=== PATIENT | female | born 1990 | race Caucasian/White ===

== ENCOUNTER 2016-09-04 21:12 | Inpatient (IN) ==
[2016-09-04] MEDS ORDERED: INFLUENZA VIRUS VACCINE 0.5 ML SYRINGE IM ONE (21:34)
[2016-09-05] MEDS ORDERED: BUTORPHANOL 2 MG/ML VIAL IV PRN (00:03)
[2016-09-05] MEDS ORDERED: ONDANSETRON 4 MG/2 ML VIAL IV PRN ×2 (00:03→12:17)
[2016-09-05] MEDS ORDERED: ACETAMINOPHEN 325 MG TABLET PO PRN ×2 (00:03→12:17)
[2016-09-05] MEDS ORDERED: TERBUTALINE 1 MG/1 ML VIAL SUBCUT PRN (00:03)
[2016-09-05 01:48] LABS: Basophils % 0.2 % (0.0-0.8); Eosinophils % 0.3 % (0.00-10.9); Hematocrit 29.7 VOL% (35.7-47.0); Hemoglobin 9.5 GM/DL (12.0-16.0); Immature Granulocytes % 1.2 %; Immature Granulocytes Absolute 0.13 #; Lymphocytes # 1.9 10*3/uL (1.4-4.0); Lymphocytes % 18.2 % (21.3-54.2); Mean Corpuscular Hemoglobin 29 PG (27-34); Mean Corpuscular Volume 90.3 FL (87-102); Mean Platelet Volume 11.2 FL (9.6-12.0); Monocytes # 0.8 10*3/uL (0.11-0.8); Monocytes % 7.2 % (1.7-12.7); NRBC # 0.02 10*3/uL; Neutrophils # 7.6 10*3/uL (1.4-7.4); Neutrophils % 72.9 % (38.7-73.9); Platelet Count 166 10*3/uL (130-400); Red Blood Count 3.29 10*6/uL (3.8-5.5); Red Cell Distribution Width 13.1 % (9.3-17.3); White Blood Count 10.5 10*3/uL (4.5-13.71)
--- NOTE | 2016-09-05 07:00 | OB/GYN History & Physical ---
History of Present Illness Chief complaint: at 39+ weeks low ADAMARIS elective induction History of present illness: Ms. Shea is a 26 year old female 1 para 0 at 39+3 weeks assessment gestational age with ultrasound estimated weight of 8 lbs. 1 oz. vertex presentation with low ADAMARIS of 6 who requests elective induction. She has adequate clinical pelvimetry. Risks benefits and alternatives are explained to patient in detail and informed consent was obtained Home Medications Medication Instructions Recorded Confirmed Type No Known Home Medications [No 03/16/15 09/04/16 History Known Home Medications] Allergies Allergy/AdvReac Type Severity Reaction Status Date / Time No Known Allergies Allergy Unverified 03/16/15 21:36 12 point system: reviewed and no additional remarkable complaints except as stated Medical,Surgical,& Family Hx - Medical History Reproductive: No history of: Ectopic , Complication - Surgical History Reproductive Surgeries: Patient denies;: Section - Family History Family History: Reports;: Family Hypertension (mom, mgf) Denies;: Family Anesthesia Reaction, Family Cancer, Family Diabetes, Family Heart Disease, Family Hematology, Family Psychiatric Problems, Family Stroke, Additional Family History - Social History Smoking Status: Unknown if ever smoked Frequency of Alcohol Use: None Type of Drug Use: None 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: Vital Signs Temp Pulse Resp BP 09/05/16 04:00 97.5 F L 71 18 119/78 09/05/16 00:00 79 20 133/88 09/04/16 21:18 97.7 F General appearance: normal weight, no acute distress - Head Head exam: Present: normal inspection, normocephalic, atraumatic - Eye Eye exam: Present: EOMI Pupils: Present: UMAIR - Neck Neck exam: Present: normal inspection - Respiratory Respiratory exam: Present: clear to auscultation bilaterally - Breast Breasts: as per HPI Menstruation: as per HPI - Cardiovascular Cardiovascular exam: Present: regular rate and rhythm - GI/Abdominal GI/Abdominal exam: Present: normal bowel sounds - Extremities Exam Extremities exam: Present: normal inspection, normal capillary refill - Back Exam Back exam: Present: normal inspection - Neurological Exam Neurological exam: Present: alert, oriented X3 - Psychiatric Psychiatric exam: Present: normal affect, normal mood - Skin Skin exam: Present: normal color, warm Assessment and Plan (1) with 39 completed weeks gestation Status: Acute Current Visit: Yes (2) ADAMARIS (amniotic fluid index) borderline low Status: Acute Current Visit: Yes (3) Elective induction of labor planned Status: Acute Current Visit: Yes Results - Labs CBC & BMP: 09/05/16 00:21
[2016-09-05] MEDS ORDERED: BUTORPHANOL 1 MG/ML VIAL ONE (07:14)
[2016-09-05] MEDS ORDERED: OXYTOCIN/LR 20 UNIT/1,000 ML BAG IV ONE ×2 (07:14→12:17)
[2016-09-05] MEDS ORDERED: BUTORPHANOL 1 MG/ML VIAL IV PRN (07:19)
[2016-09-05] MEDS ORDERED: FAMOTIDINE 20 MG/2 ML VIAL IV ONE (07:54)
[2016-09-05] MEDS ORDERED: fentaNYL 2 MCG/ROPIV 0.2% EPID 150 ML EPIDURAL SCH (07:54)
[2016-09-05] MEDS ORDERED: CITRIC ACID/SODIUM CITRATE 30 ML UDCUP PO ONE (07:54)
[2016-09-05] MEDS ORDERED: ePHEDrine 50 MG/ML AMP IV PRN (07:54)
[2016-09-05] MEDS ORDERED: diphenhydrAMINE 50 MG/1 ML VIAL IV PRN (07:54)
[2016-09-05] MEDS ORDERED: hydrOXYzine HCL 25 MG/1 ML VIAL IM PRN (07:54)
[2016-09-05] MEDS ORDERED: OXYTOCIN/LR 20 UNIT/1,000 ML BAG IV SCH (08:00)
[2016-09-05] MEDS: LACTATED RINGERS 1,000 ML IV SCH ×3 (08:07→17:24)
[2016-09-05] MEDS ORDERED: ePHEDrine 50 MG/ML AMP ONE (09:13)
[2016-09-05] MEDS ORDERED: LIDOCAINE 1% 50 ML VIAL ONE (11:37)
[2016-09-05] MEDS ORDERED: miSOPROStol 200 MCG TABLET ONE (11:37)
[2016-09-05] MEDS ORDERED: LANOLIN 50% CREAM 0.3 OZ TUBE TOP PRN (12:17)
[2016-09-05] MEDS ORDERED: MEASLES/MUMPS/RUBELLA VACCINE 0.5 ML VIAL SUBCUT ONE (12:17)
[2016-09-05] MEDS ORDERED: HYDROCORTISONE 2.5% RECTAL CREAM 30 GM TUBE TOP PRN (12:17)
[2016-09-05] MEDS ORDERED: BISACODYL 10 MG SUPP RECTAL PRN (12:17)
[2016-09-05] MEDS ORDERED: BENZOCAINE 20%/MENTHOL 0.5% SPRAY 56 GM CAN TOP PRN (12:17)
[2016-09-05] MEDS ORDERED: oxyCODONE/ACETAMINOPHEN 5-325 MG TABLET PO PRN ×2 (12:17)
[2016-09-05] MEDS ORDERED: WITCH HAZEL PADS 100/JAR TOP PRN (12:17)
[2016-09-05] MEDS ORDERED: DIPH/TET/ACEL PERT BOOSTER VACCINE 0.5 ML VIAL IM ONE (12:17)
[2016-09-05] MEDS ORDERED: RHO(D) IMMUNE GLOBULIN 300 MCG SYRINGE IM ONE (12:17)
--- NOTE | 2016-09-05 12:17 | OB/GYN Progress Note ---
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 Boo dictating vaginal delivery And in LDR environment under sterile conditions, the patient progressed to completely dilated. She was allowed to push and under [epidural] anesthesia had a normal spontaneous vaginal delivery of a live born female infant unweighed Apgars 8 and 9 over a [second-degree midline episiotomy]. The ' s nose and oropharynx were bulb and DeLee suctioned, and the infant had spontaneous cry after delivery. The cord was doubly clamped and cut and the infant was handed over to the pediatric team for care. Cord blood was obtained the placenta delivered spontaneously intact and IV Pitocin was done. There were no cervical tears. There were no periurethral tears. Estimated blood loss was 250 mL. There were no complications. The bladder was emptied using a catheter prior to delivery. All sponge needle and instrument counts were correct 3 at the end of the delivery. 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
[2016-09-05] MEDS: IBUPROFEN 800 MG TABLET PO PRN (16:20)
[2016-09-05] MEDS: DOCUSATE SODIUM 100 MG CAPSULE PO SCH (21:11)
[2016-09-06] MEDS: IBUPROFEN 800 MG TABLET PO PRN ×2 (06:01)
[2016-09-06 06:05] LABS: Basophils % 0.1 % (0.0-0.8); Eosinophils % 0.2 % (0.00-10.9); Hematocrit 21.8 VOL% (35.7-47.0); Immature Granulocytes Absolute 0.11 #; Lymphocytes # 2.2 10*3/uL (1.4-4.0); Mean Corpuscular HGB Conc 32.1 GM/DL (32-36); Mean Corpuscular Hemoglobin 29 PG (27-34); Mean Corpuscular Volume 91.6 FL (87-102); Mean Platelet Volume 11.2 FL (9.6-12.0); Monocytes # 0.7 10*3/uL (0.11-0.8); Monocytes % 5.6 % (1.7-12.7); Neutrophils # 8.6 10*3/uL (1.4-7.4); Neutrophils % 74.1 % (38.7-73.9); Platelet Count 142 10*3/uL (130-400); Red Blood Count 2.38 10*6/uL (3.8-5.5); Red Cell Distribution Width 13.2 % (9.3-17.3); White Blood Count 11.5 10*3/uL (4.5-13.71)
--- NOTE | 2016-09-06 07:50 | OB/GYN Progress Note ---
Assessment and Plan (1) with 39 completed weeks gestation Status: Acute Current Visit: Yes (2) ADAMARIS (amniotic fluid index) borderline low Status: Acute Current Visit: Yes (3) Elective induction of labor planned Status: Acute Current Visit: Yes [employer] - PN: Subj Interval history: Patient is doing well she is eating ambulating and voiding She is afebrile and her vital signs are stable Her fundus is firm and contracted She has decreased lochia Assessment #1 day #1 doing well Plan continue present management with expected DC tomorrow Exam [employer] - Constitutional Vitals: Vital Signs Temp Pulse Resp BP Pulse Ox 09/06/16 07:27 97.8 F 84 18 117/75 98 09/06/16 04:00 97.1 F L 83 18 103/58 99 09/06/16 00:00 98.6 F 91 H 18 117/67 99 09/05/16 20:00 97.3 F L 77 20 107/57 99 09/05/16 19:50 77 20 09/05/16 18:15 97.5 F L 91 H 16 114/68 98 09/05/16 17:15 98.2 F 85 18 104/65 98 09/05/16 16:15 98.1 F 98 H 18 118/72 98 09/05/16 15:45 97.9 F 101 H 16 125/80 97 09/05/16 15:15 98.3 F 109 H 16 136/86 98 Results - Labs CBC & BMP: 09/06/16 05:20
[2016-09-06] MEDS: DOCUSATE SODIUM 100 MG CAPSULE PO SCH ×2 (08:41→20:56)
[2016-09-07 07:17] VITALS: BP 111/66
--- NOTE | 2016-09-07 07:28 | Discharge Summary ---
Hospital Course - Hospital Course Hospital Course: the patient did well. She had quick return of bowel bladder function. She maintained afebrile and normotensive throughout her hospitalization. She is counseling discharged on day #2 on a regular diet Diagnosis - Discharge Diagnosis (1) with 39 completed weeks gestation Status: Acute (2) ADAMARIS (amniotic fluid index) borderline low Status: Acute (3) Elective induction of labor planned Status: Acute Specialty Discharge - Follow Up or Referrals - Discharge Medications No Action No Known Home Medications [No Known Home Medications] Discharge Plan - Discharge Data Disposition: Disch To Home/Self Care Condition at Discharge: Stable Discharge Diet: regular diet Activity: increase activity as tolerated, other (pelvic rest) Hygiene: may shower Weight Bearing at Discharge: full weight bearing Driving: no restrictions Contact your physician if you experience:: fever over 101, Difficulty voiding, Redness or swelling, Nausea/Vomiting, Shortness of breath, Bleeding, pain uncontrolled by pain medications - Discharge Medications New HYDROcodone/ACETAMIN 5-325 [[place] 5-325] 1 tablet PO Q4H PRN #15 tablet PRN Reason: Abdominal Pain - Follow Up or Referral Follow Up: Scott Boo MD [Primary Care Provider] - 2 Weeks - Forms/Instructions Exam - Constitutional Vitals: Period Temp Pulse Resp BP Sys/Duarte Pulse Ox Last 24 Hr 97 F-98.1 F 71-95 16-20 99-154/55-78 97-99 DS: Provider Date of admission: 09/05/16 00:03 Primary care physician: Will Feliciano Attending physician on admission: Will Feliciano Consults: 09/05/16 00:03 Consult to Anesthesiology [CONS] Routine Consulting Provider: Reason for Anesthesiology: Epidural Consult Comment: Epidural for pain managment 09/05/16 12:17 Consult to [employer] [CONS] Routine Consult [employer]: Breast Feeding Discharging clinician: Will Feliciano Expected date of discharge: 09/07/16
[2016-09-07] MEDS: IBUPROFEN 800 MG TABLET PO PRN (08:48)
[2016-09-07] MEDS: DOCUSATE SODIUM 100 MG CAPSULE PO SCH (08:48)
[2016-09-07] MEDS ORDERED: INFLUENZA VIRUS VACCINE 0.5 ML SYRINGE IM ONE (11:00)
== END 2016-09-07 12:42 | disposition home or self-care (01) | DRG 775 ==
LOC: N.LDOUT 21:12 → N.LD 21:13 → N.OB 09-05 15:02
PROVIDERS: ADMIT Specialist; ATTEND Specialist

== ENCOUNTER 2021-04-07 19:34 | Inpatient (IN) ==
[2021-04-07] MEDS ORDERED: LACTATED RINGERS 500 ML IV PRN (19:48)
[2021-04-07] MEDS ORDERED: ONDANSETRON 4 MG/2 ML VIAL IV PRN (19:48)
[2021-04-07 20:20] LABS: Basophils % 0.2 % (0.0-0.8); Eosinophils % 0.2 % (0.00-10.9); Hematocrit 30.7 VOL% (35.7-47.0); Hemoglobin 9.6 GM/DL (12.0-16.0); Immature Granulocytes % 0.8 %; Lymphocytes % 15.5 % (21.3-54.2); Mean Corpuscular HGB Conc 31.3 GM/DL (32-36); Mean Corpuscular Volume 88.2 FL (87-102); Mean Platelet Volume 9.9 FL (9.6-12.0); Monocytes % 5.3 % (1.7-12.7); Platelet Count 175 T/CUMM (130-400); Red Blood Count 3.48 MC/CUMM (3.8-5.5); Red Cell Distribution Width 14.8 % (9.3-17.3); White Blood Count 12.7 T/CUMM (4-12)
[2021-04-07] MEDS ORDERED: CITRIC ACID/SODIUM CITRATE 30 ML UDCUP PO ONE (20:27)
[2021-04-07] MEDS ORDERED: ePHEDrine 50 MG/ML VIAL IV PRN (20:27)
[2021-04-07] MEDS ORDERED: FAMOTIDINE 20 MG/2 ML VIAL IV ONE ×2 (20:27→20:30)
[2021-04-07] MEDS: LACTATED RINGERS 1,000 ML IV SCH ×2 (20:28→20:50)
[2021-04-07] MEDS ORDERED: CITRIC ACID/SODIUM CITRATE 30 ML UDCUP ONE (20:29)
[2021-04-07] MEDS ORDERED: fentaNYL 2 MCG/ROPIV 0.2% EPID 100 ML EPIDURAL ONE (20:30)
[2021-04-07] MEDS ORDERED: LACTATED RINGERS 1,000 ML IV SCH (20:30)
[2021-04-07] MEDS ORDERED: ePHEDrine 50 MG/ML VIAL ONE (20:30)
[2021-04-07 20:38] LABS: Albumin 3.1 G/DL (3.4-5.0); Bilirubin,Total 0.4 MG/DL (0.20-1.00); Calcium 8.8 MG/DL (8.5-10.1); Osmolality,Calculated 273.7 MOS/KG (273-304); Potassium 3.3 MMOL/L (3.5-5.1); Total Protein 7.4 G/DL (6.4-8.2)
[2021-04-07] MEDS: fentaNYL 2 MCG/ROPIV 0.2% EPID 100 ML EPIDURAL SCH (21:16)
[2021-04-07] MEDS ORDERED: PHENYLEPHRINE 1 MG/10 ML SYRINGE IV ONE (21:25)
[2021-04-08 00:31] LABS: Bacteria,Urine Occasional /HPF (Few); Bilirubin,Urine Negative (Negative); Blood, Urine Negative (Negative); Glucose,Urine (UA) Negative (Negative); Ketones,Urine 5 mg/dL (Negative); Mucus,Urine Many /LPF (Occasional); Nitrite,Urine Negative (Negative); Protein,Urine Negative; RBC,Urine 1 /HPF (0-4); Renal Epithelial Cells,Urine Occasional /HPF (<1); Squamous Epithelial Cell,Urine Occasional /HPF (0-10); Urine Appearance CLEAR (Clear); Urine Color Yellow (Yellow); Urine Specific Gravity 1.017 (1.001-1.035)
[2021-04-08] MEDS: LACTATED RINGERS 1,000 ML IV SCH (02:01)
[2021-04-08] MEDS: POTASSIUM CHLORIDE 20 MEQ TABLET PO PRN ×3 (02:35→06:21)
[2021-04-08] MEDS ORDERED: OXYTOCIN/LR 20 UNIT/1,000 ML BAG IV SCH (07:00)
[2021-04-08] MEDS ORDERED: fentaNYL 100 MCG/2 ML VIAL ONE (08:51)
[2021-04-08] MEDS ORDERED: TRANEXAMIC ACID 1,000 MG/10 ML VIAL ONE (09:10)
[2021-04-08] MEDS ORDERED: MEPERIDINE 50 MG/1 ML VIAL ONE (09:10)
[2021-04-08] MEDS ORDERED: miSOPROStoL 200 MCG TABLET ONE (09:10)
[2021-04-08] MEDS ORDERED: CARBOPROST TROMETHAMINE 250 MCG/ML AMP IM ONE (09:11)
[2021-04-08] MEDS ORDERED: METHYLERGONOVINE 0.2 MG/1 ML AMP ONE (09:11)
[2021-04-08] MEDS: fentaNYL 2 MCG/ROPIV 0.2% EPID 100 ML EPIDURAL SCH (09:16)
[2021-04-08] MEDS ORDERED: OXYTOCIN/LR 20 UNIT/1,000 ML BAG IV ONE (10:01)
[2021-04-08] MEDS ORDERED: ONDANSETRON 4 MG/2 ML VIAL IV PRN (10:01)
[2021-04-08] MEDS ORDERED: HYDROCORTISONE 2.5% RECTAL CREAM 30 GM TUBE TOP PRN (10:01)
[2021-04-08] MEDS ORDERED: oxyCODONE/ACETAMINOPHEN 5-325 MG TABLET PO PRN ×2 (10:01)
[2021-04-08] MEDS ORDERED: ACETAMINOPHEN 325 MG TABLET PO PRN (10:01)
[2021-04-08] MEDS ORDERED: RHO(D) IMMUNE GLOBULIN 300 MCG SYRINGE IM ONE (10:01)
[2021-04-08] MEDS ORDERED: WITCH HAZEL PADS 100/JAR TOP PRN (10:01)
[2021-04-08] MEDS ORDERED: BENZOCAINE 20%/MENTHOL 0.5% SPRAY 56 GM CAN TOP PRN (10:01)
[2021-04-08] MEDS ORDERED: BISACODYL 10 MG SUPP RECTAL PRN (10:01)
[2021-04-08] MEDS ORDERED: MEASLES/MUMPS/RUBELLA VACCINE 0.5 ML VIAL SUBCUT ONE (10:01)
[2021-04-08] MEDS ORDERED: DIPH/TET/ACEL PERT BOOSTER VACCINE 0.5 ML VIAL IM ONE (10:01)
[2021-04-08] MEDS ORDERED: LANOLIN 50% CREAM 0.3 OZ TUBE TOP PRN (10:01)
[2021-04-08] MEDS ORDERED: METHYLERGONOVINE 0.2 MG/1 ML AMP IM ONE (10:06)
[2021-04-08] MEDS: IBUPROFEN 800 MG TABLET PO PRN ×2 (13:08→21:12)
[2021-04-08] MEDS: DOCUSATE SODIUM 100 MG CAPSULE PO SCH (21:12)
[2021-04-09] MEDS: IBUPROFEN 800 MG TABLET PO PRN ×3 (04:00→19:50)
[2021-04-09 04:51] LABS: Basophils % 0.3 % (0.0-0.8); Eosinophils % 0.3 % (0.00-10.9); Hematocrit 22.5 VOL% (35.7-47.0); Immature Granulocytes % 0.6 %; Immature Granulocytes Absolute 0.06 #; Lymphocytes # 1.9 10*3/uL (1.4-4.0); Lymphocytes % 20.3 % (21.3-54.2); Mean Corpuscular HGB Conc 31.6 GM/DL (32-36); Mean Corpuscular Volume 87.9 FL (87-102); Mean Platelet Volume 10.8 FL (9.6-12.0); Monocytes % 6.2 % (1.7-12.7); Neutrophils % 72.3 % (38.7-73.9); Platelet Count 150 T/CUMM (130-400); Red Cell Distribution Width 14.7 % (9.3-17.3); White Blood Count 9.3 T/CUMM (4-12)
[2021-04-09 05:09] LABS: Hemoglobin 7.1 GM/DL (12.0-16.0); Red Blood Count 2.56 MC/CUMM (3.8-5.5)
[2021-04-09] MEDS: DOCUSATE SODIUM 100 MG CAPSULE PO SCH ×2 (08:34→20:00)
[2021-04-09] MEDS: FERROUS SULFATE 325 MG TABLET PO SCH ×3 (08:35→20:00)
[2021-04-09] MEDS ORDERED: MAGNESIUM HYDROXIDE SUSP 30 ML UDCUP PO PRN (15:31)
[2021-04-10 07:46] VITALS: BP 99/60
[2021-04-10] MEDS: DOCUSATE SODIUM 100 MG CAPSULE PO SCH (09:54)
[2021-04-10] MEDS: FERROUS SULFATE 325 MG TABLET PO SCH (09:54)
== END 2021-04-10 12:25 | disposition home or self-care (01) | DRG 807 ==
LOC: N.LDOUT 19:34 → N.LD 19:35 → N.OB 04-08 12:06
PROVIDERS: ADMIT Specialist; ATTEND Specialist